=== PATIENT | male | born 1960 | race Caucasian/White ===

== ENCOUNTER 2021-05-14 20:22 | Emergency (ER) | payer OTHER, SELFPAY ==
--- OUTSIDE RECORDS SUMMARY | 2021-05-14 20:25 | XMS REPORT | Continuity of Care Document ---
:1960 Author Organization [facility] t Address [address] [place] [address] Dr. Marcial [address] [place] [id number] Care Team Providers Name Role Phone Unavailable Unavailable Unavailable Problems This patient has no known problems. Allergies, Adverse Reactions, Alerts This patient has no known allergies or adverse reactions. Medications This patient has no known medications. Procedures This patient has no known procedures. Results This patient has no known results.
[2021-05-14 20:44] LABS: Absolute Lymphocytes (CBC) 2.1 K/uL (0.7-4.9); Basophils % 0.6 % (0-1.3); Hematocrit 36.1 % (39.6-49.0); Lymphocytes % 30.6 % (15.3-44.8); MPV 8.1 fL (7.6-11.3); RBC Red Blood Cell Count 4.44 M/uL (4.33-5.43)
[2021-05-14 21:08] LABS: Protime INR 1.02
--- NOTE | 2021-05-14 21:11 | RAD REPORT ---
EXAM DESCRIPTION: CT - Head Brain Wo Cont - 05/14/2021 9:00 pm CLINICAL HISTORY: Alteration of awareness/confusion COMPARISON: None TECHNIQUE: Computed axial tomography of the head was obtained. IV contrast was not requested. All CT scans are performed using dose optimization technique as appropriate and may include automated exposure control or mA/KV adjustment according to patient size. FINDINGS: An intracranial bleed is not seen . The ventricles are normal in caliber. No extra-axial fluid collection is noted. Fluid within the sinuses/ mastoids is not seen. IMPRESSION: No acute intracranial abnormality is seen. If patient's symptoms persist MRI of the bra in would be recommended.
[2021-05-14 21:29] LABS: ALT/SGPT 19 U/L (12-78); AST/SGOT 20 U/L (15-37); Albumin 3.1 g/dL (3.4-5.0); Alkaline Phosphatase 59 U/L (45-117); BUN Blood Urea Nitrogen 14 mg/dL (7-18); Bicarbonate 23 mmol/L (21-32); Bilirubin Direct 0.2 mg/dL (0-0.2); Bilirubin Total 0.3 mg/dL (0.2-1.0); Glucose Level 84 mg/dL (74-106); Potassium 3.6 mmol/L (3.5-5.1); Protein, Total 6.9 g/dL (6.4-8.2); Sodium Level 142 mmol/L (136-145)
[2021-05-14 21:39] LABS: Urine Blood Trace-intact (Negative); Urine Glucose Negative (Negative); Urine Protein Negative (Negative); Urine pH 5.5 (5.0-7.0)
[2021-05-14 21:45] LABS: Troponin I < 0.02 ng/mL (0.0-0.045)
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
--- NOTE | 2021-05-14 22:00 | EDPHYS ---
Physician Documentation [facility] Name: Burke Agarwal Jr Age: 60 yrs Sex: Male : 1960 Arrival Date: 05/14/2021 Time: 20:24 Bed 3 Private MD: ED Physician Ran Fuentes HPI: 05/14 20:35 This 60 yrs old Male presents to ER via EMS with complaints of DEHYDRATION. mh7 20:35 The patient presents with Nonspecific altered mental status. Onset: The mh7 symptoms/episode began/occurred just prior to arrival, today. 20:35 Possible causes: alcohol, Drinking today. Associated signs and symptoms: Pertinent mh7 negatives: abdominal pain, agitation, ataxia, blurred vision, chest pain, combativeness, diaphoresis, diarrhea, dizziness, headache, lightheadedness, nausea, numbness, palpitations, seizure, shortness of breath, tingling, vertigo, vomiting, weakness. Current symptoms: In the emergency department the patient's symptoms have resolved, the patient is alert and fully oriented, has normal speech, has normal responsiveness, has no confusion. Patient's baseline: Neuro: alert and fully oriented, Motor: no deficits, Ambulation: walks without assistance, Speech: normal. Patient states that he believes at a bar drinking bourbon with some friends and remembrance of his girlfriend who . He does not know why he was brought to hospital. He denies any headache, chest pain, abdominal pain, fever, cough, nausea, vomiting, dizziness, numbness/tingling, or focal weakness. He has had some intermittent depression but denies any suicidal or homicidal ideation. He denies any auditory or visual hallucinations.. Historical: - Allergies: 20:29 PENICILLINS; em - PMHx: 20:29 None; em - PSHx: 20:29 None; em - Immunization history:: Client reports having NOT received the Covid vaccine. - Social history:: Smoking status: Patient denies any tobacco usage or history of. ROS: 20:35 Constitutional: Negative for fever, chills, and weight loss, Eyes: Negative for injury, mh7 pain, redness, and discharge, ENT: Negative for injury, pain, and discharge, Neck: Negative for injury, pain, and swelling, Cardiovascular: Negative for chest pain, palpitations, and edema, Respiratory: Negative for shortness of breath, cough, wheezing, and pleuritic chest pain, Abdomen/GI: Negative for abdominal pain, nausea, vomiting, diarrhea, and constipation, Back: Negative for injury and pain, : Negative for injury, bleeding, discharge, and swelling, MS/Extremity: Negative for injury and deformity, Skin: Negative for injury, rash, and discoloration, Neuro: Negative for headache, weakness, numbness, tingling, and seizure. 20:35 Allergy/Immunology: Negative for hives, rash, and allergies, Endocrine: Negative for neck swelling, polydipsia, polyuria, polyphagia, and marked weight changes, Hematologic/Lymphatic: Negative for swollen nodes, abnormal bleeding, and unusual bruising. 20:35 Psych: Negative for anxiety, drug dependence, alcohol dependence, auditory hallucinations, visual hallucinations, homicidal ideation, insomnia, suicide gesture, suicidal ideation. Exam: 20:35 Head/Face: Normocephalic, atraumatic. Eyes: Pupils equal round and reactive to light, mh7 extra-ocular motions intact. Lids and lashes normal. Conjunctiva and sclera are non-icteric and not injected. Cornea within normal limits. Periorbital areas with no swelling, redness, or edema. Neck: Trachea midline, no thyromegaly or masses palpated, and no cervical lymphadenopathy. Supple, full range of motion without nuchal rigidity, or vertebral point tenderness. No Meningismus. Chest/axilla: Normal chest wall appearance and motion. Nontender with no deformity. No lesions are appreciated. Cardiovascular: Regular rate and rhythm with a normal S1 and S2. No gallops, murmurs, or rubs. Normal PMI, no JVD. No pulse deficits. Respiratory: Lungs have equal breath sounds bilaterally, clear to auscultation and percussion. No rales, rhonchi or wheezes noted. No increased work of breathing, no retractions or nasal flaring. Abdomen/GI: Soft, non-tender, with normal bowel sounds. No distension or tympany. No guarding or rebound. No evidence of tenderness throughout. Back: No spinal tenderness. No costovertebral tenderness. Full range of motion. Skin: Warm, dry with normal turgor. Normal color with no rashes, no lesions, and no evidence of cellulitis. MS/ Extremity: Pulses equal, no cyanosis. Neurovascular intact. Full, normal range of motion. Neuro: Awake and alert, GCS 15, oriented to person, place, time, and situation. Cranial nerves II-XII grossly intact. Motor strength 5/5 in all extremities. Sensory grossly intact. Cerebellar exam normal. Normal gait. 20:35 Psych: Awake, alert, with orientation to person, place and time. Behavior, mood, and affect are within normal limits. 20:35 Constitutional: The patient appears in no acute distress, alert, awake, Appears intoxicated 20:35 Psych: Vital Signs: 20:27 BP 162 / 91; Pulse 62; Resp 18; Temp 98.0; Pulse Ox 100% on R/A; Weight 112.94 kg; em Height 6 ft. 0 in. (182.88 cm); Pain 0/10; 20:27 Body Mass Index 33.77 (112.94 kg, 182.88 cm) em MDM: 21:57 Differential Diagnosis: electrolyte abnormality, alcohol intoxication, hypoglycemia, mh7 intracranial bleed, seizure, volume depletion. Data reviewed: vital signs, nurses notes, lab test result(s), cardiac enzymes, CBC, drug level(s), alcohol, electrolytes, EKG, radiologic studies, CT scan. Data interpreted: Pulse oximetry: on room air is 100 %. Interpretation: normal. Counseling: I had a detailed discussion with the patient and/or guardian regarding: the historical points, exam findings, and any diagnostic results supporting the discharge/admit diagnosis, the presence of at least one elevated blood pressure reading (>120/80) during this emergency department visit, lab results, radiology results, the need for outpatient follow up, to return to the emergency department if symptoms worsen or persist or if there are any questions or concerns that arise at home. Response to treatment: the patient's symptoms have markedly improved after treatment. Refusal of service: The patient/guardian displays adequate decision making capability and despite a detailed discussion of alternatives, benefits, risks, and consequences refuses: all X-rays. 21:59 Patient medically screened. [facility] 05/14 20:30 Order name: Acetaminophen 05/14 20:30 Order name: Basic Metabolic Panel 05/14 20:30 Order name: CBC with Diff 05/14 20:30 Order name: ETOH Level 05/14 20:30 Order name: Hepatic Function; Complete Time: 21:49 05/14 20:30 Order name: PT-INR; Complete Time: 21:31 05/14 20:30 Order name: Ptt, Activated; Complete Time: 21:31 05/14 20:30 Order name: Salicylate; Complete Time: 21:49 05/14 20:30 Order name: Urine Drug Screen em 05/14 20:30 Order name: Acetaminophen Level; Complete Time: 21:49 [facility] 05/14 20:30 Order name: Basic Metabolic Panel; Complete Time: 21:49 [facility] 05/14 20:30 Order name: CBC with Automated Diff; Complete Time: 21:03 [facility] 05/14 20:30 Order name: Alcohol Serum/Plasma; Complete Time: 21:31 [facility] 05/14 20:30 Order name: EKG; Complete Time: 20:31 05/14 20:30 Order name: EKG - Nurse/Tech; Complete Time: 20:44 05/14 20:30 Order name: IV Saline Lock; Complete Time: 20:44 05/14 20:30 Order name: Labs collected and sent; Complete Time: 20:44 05/14 20:30 Order name: Urine Dipstick-Ancillary (obtain specimen); Complete Time: 21:52 05/14 20:45 Order name: CT Head Brain wo Cont; Complete Time: 21:31 [facility] 05/14 20:56 Order name: Troponin I; Complete Time: 21:49 [facility] 05/14 21:39 Order name: Urine Dipstick-Ancillary; Complete Time: 21:49 EDMS Administered Medications: No medications were administered Disposition Summary: 05/14/21 21:59 Discharge Ordered Location: Home [facility] Problem: [facility] Symptoms: have improved [facility] Condition: Stable [facility] Diagnosis - Alcohol use, unspecified with intoxication [facility] Followup: [facility] - With: Private Physician - When: 1 - 2 days - Reason: Worsening of condition, Recheck today's complaints, Continuance of care, Re-evaluation by your physician Discharge Instructions: - Discharge Summary Sheet [facility] - Alcohol Intoxication, [id number] [facility] Forms: - Medication Reconciliation Form [facility] - Thank You Letter [facility] - Antibiotic Education [facility] - Prescription Opioid Use [facility] Signatures: Dispatcher [employer] Rayray Isaacs, RN RN em Ran Fuentes MD MD mh7 Corrections: (The following items were deleted from the chart) 20:44 20:30 Suicide Screening ([place]) ordered. em em 20:56 20:46 TROPONIN (EMERG DEPT USE ONLY)+C.LAB.BRZ ordered. EDMS EDMS
[2021-05-14 22:02] LABS: Barbiturates NEGATIVE (NEGATIVE); Benzodiazepines NEGATIVE (NEGATIVE); Cocaine NEGATIVE (NEGATIVE); METHAMPHETAM NEGATIVE (NEGATIVE); Methadone NEGATIVE (NEGATIVE); Opiates NEGATIVE (NEGATIVE); Phencyclidine NEGATIVE (NEGATIVE); THC Cannibis NEGATIVE (NEGATIVE)
[2021-05-14 22:29] VITALS: BP 162/91; TEMP 98; O2SAT 100
== END 2021-05-14 22:23 | disposition home or self-care (01) ==
LOC: ER 20:22
DX: F10.929 Alcohol use, unspecified with intoxication, unspecified (principal); Z88.0 Allergy status to penicillin
CPT/HCPCS: 36415; 70450; 80048; 80076; 80307; 80320; 80329; 81003; 84484; 85025; 85610; 85730; 93005; 99284